=== PATIENT | male | born 1975 | race Caucasian/White ===

== ENCOUNTER 2017-02-17 16:47 | Emergency (ER) | payer MEDICAID, OTHER ==
[~2017-02-17] VITALS: Ht 172.7 cm; Wt 77.2 kg
[2017-02-17 17:05] VITALS: BP 115/74
[2017-02-17] MEDS ORDERED: DIPH,PERTUSS(ACELL),TET VAC/PF 0.5 ML IM-VACC ONE ×2 (17:20→17:30)
[2017-02-17] MEDS ORDERED: LIDOCAINE 1%, 20ML ONE (17:20)
[2017-02-17] MEDS ORDERED: LIDOCAINE 1%, 20ML SQ ONE (17:30)
[2017-02-17] MEDS ORDERED: BACITRACIN ZINC OINT 500U/GM, 0.9 GM ONE (18:12)
== END 2017-02-17 18:28 | disposition home or self-care (01) ==
LOC: ED 18:02
DX: S61.012A Laceration without foreign body of left thumb without damage to nail, initial encounter (principal); W26.0XXA Contact with knife, initial encounter; Y99.8 Other external cause status; Y93.89 Activity, other specified
CPT/HCPCS: 12041; 99284; J3490